=== PATIENT | male | born 1955 | race Caucasian/White ===

== ENCOUNTER → 2024-09-08 15:55 | Outpatient (REF) | payer MEDICARE, OTHER, SELFPAY | LOC: HWRAD 15:55 | PROVIDERS: ATTENDING PHYSICIAN Family Medicine | DX: R05.1 Acute cough (principal) | CPT/HCPCS: 71046 ==

== ENCOUNTER → 2024-09-30 07:11 | Outpatient (REF) | payer MEDICARE, OTHER, SELFPAY | LOC: RAD 07:11 | PROVIDERS: ATTENDING PHYSICIAN Family Medicine | DX: I73.9 Peripheral vascular disease, unspecified (principal) | CPT/HCPCS: 93922; 93925 ==

== ENCOUNTER 2024-10-05 06:23 | Day surgery (SDC) | payer MEDICARE, OTHER, SELFPAY | END 2024-10-05 09:19 | disposition home or self-care (01) | LOC: GI 06:23 | PROVIDERS: ATTENDING PHYSICIAN Internal Medicine Gastroenterology | DX: Z12.11 Encounter for screening for malignant neoplasm of colon (principal); K57.30 Diverticulosis of large intestine without perforation or abscess without bleeding; K64.0 First degree hemorrhoids; K63.89 Other specified diseases of intestine; D12.4 Benign neoplasm of descending colon; K63.5 Polyp of colon | CPT/HCPCS: 45385; 45380; 88305 ==

== ENCOUNTER → 2024-10-19 13:22 | Outpatient (REF) | payer MEDICARE, OTHER, SELFPAY | LOC: HWRAD 13:22 | PROVIDERS: ATTENDING PHYSICIAN Family Medicine | DX: M54.2 Cervicalgia (principal) | CPT/HCPCS: 72050 ==

== ENCOUNTER → 2024-11-16 15:24 | Outpatient (REF) | payer MEDICARE, OTHER, SELFPAY | LOC: RAD 15:24 | PROVIDERS: ATTENDING PHYSICIAN Surgery Vascular Surgery; FAMILY PHYSICIAN Family Medicine | DX: I73.9 Peripheral vascular disease, unspecified (principal) | CPT/HCPCS: 71275; 74174; Q9967 ==

== ENCOUNTER → 2024-12-16 06:13 | Day surgery (SDC) | payer MEDICARE, OTHER, SELFPAY ==
--- NOTE | 2024-12-13 14:12 | PTCARENOTE ---
Patients 3/10 ECG abnormal- reviewed by Dr. Funes- no additional interventions required.
[2024-12-16] VITALS (12 sets, daily range): BP systolic 151–205; BP diastolic 88–123; BMI 29.6
[2024-12-16] MEDS: NORMOSOL-R/PLASMALYTE-A 1000 IV (08:59)
[2024-12-16] MEDS: TRANDATE 5 MG IV ×3 (12:56→13:35)
[2024-12-16] MEDS: PEPCID 20 MG IV (15:42)
[2024-12-16] MEDS: NSS (PRESERVATIVE FREE) 8 ML IV (15:43)
[2024-12-21 11:44] LABS: Stone Analysis Mass 102 mg
== END ==
LOC: SDS 06:13
PROVIDERS: ATTENDING PHYSICIAN Urology
DX: N20.1 Calculus of ureter (principal); N35.919 Unspecified urethral stricture, male, unspecified site
CPT/HCPCS: 52356; 74018; 76000; 82365; C1769; C1894; C2617

== ENCOUNTER → 2025-01-05 11:16 | Outpatient (REF) | payer MEDICARE, OTHER, SELFPAY | LOC: MRI 11:16 | PROVIDERS: ATTENDING PHYSICIAN Physical Medicine & Rehabilitation Pain Medicine; FAMILY PHYSICIAN Family Medicine | DX: M54.12 Radiculopathy, cervical region (principal) | CPT/HCPCS: 72141 ==

== ENCOUNTER → 2025-06-15 10:49 | Outpatient (REF) | payer MEDICARE, OTHER, SELFPAY | LOC: HWRAD 10:49 | PROVIDERS: ATTENDING PHYSICIAN Nurse Practitioner Adult Health; FAMILY PHYSICIAN Family Medicine | DX: R91.1 Solitary pulmonary nodule (principal) | CPT/HCPCS: 71250 ==

== ENCOUNTER 2025-07-18 06:23 | Day surgery (SDC) | payer MEDICARE, OTHER, SELFPAY ==
[2025-07-11 11:18] LABS: Hematocrit 44.0 % (39.0-52.0); Hemoglobin 15.2 g/dL (13.0-18.0); Mean Corp Hgb Conc. 34.5 g/dL (33.0-37.0); Mean Corpuscular Volume 87.8 fL (80.0-94.0); Platelet Count 223 10^3/uL (130-400); Red Cell Dist. Width 12.4 % (11.5-14.5)
[2025-07-11 11:26] LABS: INR 1.06; PT 14.1 Sec (11.4-14.6)
[2025-07-11 11:27] LABS: APTT 29.9 Sec (23.4-35.0)
[2025-07-11 11:43] LABS: Blood Urea Nitrogen 19 mg/dl (9-20); Calcium 9.8 mg/dl (8.4-10.2); Carbon Dioxide 27 mmol/L (22-30); Chloride 106 mmol/L (98-107); Glucose 98 mg/dl (70-99); Potassium 4.5 mmol/L (3.5-5.1); Sodium 140 mmol/L (135-145); eGFR > 60.00
[2025-07-11 14:10] VITALS: BMI 27.8
[2025-07-18] VITALS (10 sets, daily range): BP systolic 111–135; BP diastolic 68–81; BMI 26.8
[2025-07-18] MEDS: VENTOLIN NEBULES 2.5 MG INH (09:12)
[2025-07-18] MEDS: NSS 500 IV (09:33)
== END 2025-07-18 14:16 | disposition home or self-care (01) ==
LOC: SDS 06:23
PROVIDERS: ATTENDING PHYSICIAN Internal Medicine Critical Care Medicine; FAMILY PHYSICIAN Family Medicine
DX: R94.2 Abnormal results of pulmonary function studies (principal); R91.8 Other nonspecific abnormal finding of lung field; J60 Coalworker's pneumoconiosis
CPT/HCPCS: 31629; 31628; 31624; 31645; 31623; 31627; 31654; 36415; 71045; 76000; 80048; 85027; 85610; 85730; 87015; 87070; 87102; 87116; 87205; 88112; 88172; 88173; 88305; 88333; 93005; 94640; C1713